=== PATIENT | female | born 1960 | race Two or more races ===

== ENCOUNTER 2018-02-04 19:46 | Emergency (ER) | payer OTHER ==
[~2018-02-04] VITALS: Ht 162.6 cm; Wt 68.0 kg
[2018-02-04 20:06] VITALS: BP 164/95
== END 2018-02-04 21:28 | disposition home or self-care (01) ==
LOC: ER 19:46
DX: J06.9 Acute upper respiratory infection, unspecified (principal)
CPT/HCPCS: A4606; Z7610